=== PATIENT | male | born 1970 | race Caucasian/White ===

== ENCOUNTER → 2025-02-25 10:57 | Outpatient (REF) | payer BC, SELFPAY | LOC: HWRAD 10:57 | PROVIDERS: ATTENDING PHYSICIAN Podiatrist Foot & Ankle Surgery; FAMILY PHYSICIAN Family Medicine | DX: M72.2 Plantar fascial fibromatosis (principal) | CPT/HCPCS: 73630 ==

== ENCOUNTER → 2025-08-12 08:41 | Outpatient (REF) | payer BC, SELFPAY | LOC: HWRAD 08:41 | PROVIDERS: ATTENDING PHYSICIAN Podiatrist Foot & Ankle Surgery; FAMILY PHYSICIAN Family Medicine | DX: S90.32XA Contusion of left foot, initial encounter (principal); S92.515A Nondisplaced fracture of proximal phalanx of left lesser toe(s), initial encounter for closed fracture | CPT/HCPCS: 73630 ==